=== PATIENT | male | born 1950 | race Caucasian/White ===

== ENCOUNTER 2018-01-20 07:30 | Day surgery (SDC) | payer BC, MEDICARE, OTHER ==
[2018-01-20] MEDS ORDERED: Midazolam 1 MG/ML 2 ML SDV ONE (08:16)
[2018-01-20] MEDS ORDERED: fentaNYL 100 MCG/2 ML SDV ONE (08:16)
[2018-01-20] MEDS ORDERED: Propofol 200 MG/20 ML SDV ONE ×2 (08:16→09:31)
[2018-01-20] MEDS ORDERED: Lactated Ringers 1,000 ML IV SCH (08:20)
--- NOTE | 2018-01-20 10:34 | OR ---
DATE OF PROCEDURE: 01/20/2018 PREOPERATIVE DIAGNOSIS: History of colon polyps. POSTOPERATIVE DIAGNOSIS: Two small colon polyps, 45 cm from the anal verge and cecum. PROCEDURE PERFORMED: Colonoscopy to the cecum with biopsy resection of 2 small colon polyps, 45 cm from the anal verge and cecum. ANESTHESIA: IV anesthesia with monitored anesthesia care. INDICATION: This 67-year-old white male is here for a colonoscopy to follow up prior colonoscopies, which found colon polyps. He says his last colonoscopic exam was done a couple years ago. I counseled him for the procedure including risks and alternatives and he gave his informed consent to proceed. PROCEDURE IN DETAIL: The patient was placed in the left lateral decubitus position. IV anesthesia was administered by the Anesthesia Service. Time-out was held. A rectal exam was performed, which was unremarkable. The flexible video Olympus colonoscope was introduced through his anus, up his rectum, out his colon, all the way to the cecum. En route, at about 45 cm from the anal verge, we saw a small polyp which was removed with the biopsy forceps. At the cecum, we saw another small polyp, which was removed with the biopsy forceps. The scope was then slowly withdrawn, examining the mucosa throughout. No additional mucosal abnormalities were noted. The scope was retroflexed in the rectum with the distal rectum appearing unremarkable. The scope was straightened and removed. He tolerated the procedure well. Mitch Munoz MD /[id number]
[2018-01-20 10:50] VITALS: BP 144/85
== END 2018-01-20 11:00 | disposition home or self-care (01) ==
LOC: JP.SDS 07:30
PROVIDERS: ATTEND Surgery
DX: Z12.11 Encounter for screening for malignant neoplasm of colon (principal); D12.5 Benign neoplasm of sigmoid colon; D12.0 Benign neoplasm of cecum; Z86.010 Personal history of colon polyps; Z88.0 Allergy status to penicillin
CPT/HCPCS: 45380; 88305; J2250; J2704; J3010; J7120

== ENCOUNTER 2021-03-04 10:07 | Day surgery (SDC) | payer MEDICARE, OTHER ==
[2021-03-04] MEDS ORDERED: Midazolam 1 MG/ML 2 ML SDV ONE (10:21)
[2021-03-04] MEDS ORDERED: fentaNYL 100 MCG/2 ML SDV ONE (10:21)
[2021-03-04] MEDS ORDERED: Propofol 200 MG/20 ML SDV ONE (10:21)
[2021-03-04] MEDS ORDERED: Sodium Chloride 0.9% 1,000 ML IV SCH (11:00)
[2021-03-04 12:59] VITALS: BP 134/87; PULSE 61
--- NOTE | 2021-03-05 08:28 | OR ---
DATE OF PROCEDURE: 03/04/2021 SURGEON: Christopher Scanlon MD PROCEDURE: Colonoscopy. FINDINGS: 1. Transverse colon polyp approximately 5 mm, completely removed using cold biopsy forceps. 2. Sigmoid colon polyp approximately 5 mm, completely removed using cold biopsy forceps. COMPLICATIONS: None. 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 ANESTHESIA: MAC. PREOPERATIVE DIAGNOSIS: Screening colonoscopy. POSTOPERATIVE DIAGNOSIS: Screening colonoscopy. RISKS: Risks, benefits, alternatives, and limitations including, but not limited to infection, bleeding, perforation, false positives and false negatives were explained to the patient and wished to proceed. PROCEDURE IN DETAIL: The patient was placed in left lateral decubitus position. Digital rectal exam was performed without abnormality. Scope was introduced and advanced atraumatically to the ileocecal valve. A photo was taken of appendiceal orifice. Scope was brought back to the ascending, transverse, descending colon, and retroflexed. No evidence of old or new blood. No masses. The aforementioned polyps were identified and completely removed using cold biopsy forceps. The scope was brought back to the remainder of the colon. No colitis. No other abnormalities. No abnormalities on retroflexion. Greater than 8 minutes was spent removing the scope. The prep was acceptable, approximately 85% to 90% of the luminal surface could be seen. Christopher Scanlon MD /[id number]
== END 2021-03-04 13:25 | disposition home or self-care (01) ==
LOC: JP.SDS 10:07
PROVIDERS: ATTEND Surgery
DX: Z12.11 Encounter for screening for malignant neoplasm of colon (principal); D12.3 Benign neoplasm of transverse colon; E11.9 Type 2 diabetes mellitus without complications; Z88.0 Allergy status to penicillin; Z86.010 Personal history of colon polyps
CPT/HCPCS: 45380; J2250; J2704; J3010; J7030

== ENCOUNTER 2024-01-20 07:28 | Day surgery (SDC) | payer OTHER ==
[~2024-01-20 07:28] MED LIST: Propofol 200 MG/20 ML SDV ONE; fentaNYL 50 MCG/ML SDV ONE
[2024-01-20] MEDS: Sodium Chloride 0.9% 1,000 ML IV SCH (08:27)
[2024-01-20 10:13] VITALS: BP 117/67; PULSE 63
== END 2024-01-20 10:26 | disposition home or self-care (01) ==
LOC: JP.SDS 07:28
PROVIDERS: ATTEND Surgery
DX: Z12.11 Encounter for screening for malignant neoplasm of colon (principal); I10 Essential (primary) hypertension; Z86.010 Personal history of colon polyps
CPT/HCPCS: 00812-QZ; J2704; J3010; J7030